=== PATIENT | male | born 1985 | race Two or more races ===

== ENCOUNTER 2016-08-28 10:55 | Emergency (ER) | payer SELFPAY ==
[~2016-08-28] VITALS: Ht 172.7 cm; Wt 74.8 kg
[~2016-08-28 10:55] MED LIST: NKM
[2016-08-28] MEDS ORDERED: LORazepam Inj 2mg/ml 1ml IM ONE (11:15)
[2016-08-28 14:20] VITALS: BP 126/68
--- NOTE | 2016-09-02 21:39 | Emergency Room Report ---
History of Present Illness General Chief Complaint: Abdominal Pain Source: Patient, EMS Present Illness HPI 31YOM BIBEMS for public intoxication. Found on ground, obviously intoxicated per EMS. EMS denies any vomiting, sign of trauma. Patient endorsed "drinking every day." Vitals and glucose normal on scene. Patient never been here before per review of EMR. Denies other medical problems. Contrary to flat examiner note, patient NOT c/o abd pain or nausea/vomiting, diarrhea, chest pain, SOB, headache. Patient is actually acutely agitated, trying to walk out of ER from stretcher but still with unsteady gait. Not providing additional HPI at this time. Allergies: Coded Allergies: No Known Allergies (Unverified , 08/28/16) Patient History Past Medical History: none Past Surgical History: none Pertinent Family History: none Social History: Reports: alcohol use Immunizations: UTD Reviewed Nursing Documentation: PMH: Agreed, PSxH: Agreed Nursing Documentation-PMH Past Medical History: No Stated History Review of Systems All Other Systems: negative except mentioned in HPI Physical Exam Vital Signs Date Time Temp Pulse Resp B/P Pulse Ox O2 Delivery O2 Flow Rate FiO2 08/28/16 10:40 98.1 100 18 138/92 97 Room Air Sp02 EP Interpretation: reviewed, normal General Appearance: normal inspection, no apparent distress, alert, GCS 15, non -toxic, other - +AOB, dirty, disheveled clothes. Intermittently aggessive, combative. 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 VSS. afebrile. Atraumatic No focal neuro deficits Patient had unsteady gait due to ETOH intox, trying to leave ED, potential risk of falling, hurting himself Required sedation with low dose IM ativan Was observed multiple times during course of my shift with serial vital signs, reassessment At end of shift, when alert and oriented, ambulating with steady gait, asked for and received sandwich Was DCed with PMD followup as needed Last Vital Signs Date Time Temp Pulse Resp B/P Pulse Ox O2 Delivery O2 Flow Rate FiO2 08/28/16 14:20 100 14 126/68 97 Room Air 08/28/16 14:20 98.1 Status: improved Disposition: HOME, SELF-CARE Condition: Improved Referrals: NOT CHOSEN IPA/,REFERRING (PCP) Patient Instructions: Alcohol Intoxication, [id number] SEFERINO MATHIS M.D. September 02, 2016 21:39
== END 2016-08-28 14:23 | disposition home or self-care (01) ==
LOC: EDBD 10:55 → EMR 14:00
DX: F10.120 Alcohol abuse with intoxication, uncomplicated (principal)
CPT/HCPCS: 96372; 99284